=== PATIENT | female | born 1955 | race Caucasian/White ===

== ENCOUNTER 2024-11-06 09:30 | Emergency (ER) | payer MEDICARE, OTHER | END 2024-11-06 10:20 | disposition home or self-care (01) | LOC: ERS 09:30 | DX: S79.911A Unspecified injury of right hip, initial encounter (principal); I48.91 Unspecified atrial fibrillation; W01.0XXA Fall on same level from slipping, tripping and stumbling without subsequent striking against object, initial encounter | CPT/HCPCS: 99283 ==